=== PATIENT | female | born 1980 | race American Indian/Alaskan Native ===

== ENCOUNTER 2017-12-10 12:16 | Emergency (ER) | payer OTHER ==
[2017-12-10 12:34] VITALS: RESP 18; O2SAT 100
--- NOTE | 2017-12-10 12:58 | C.PDOC ---
History Of Present Illness 37-year-old female, PMHx includes Hypertension, presents to the emergency department with complaints of foot pain s/p mechanical fall. Patient states she was stepping off the train, and twisted her left foot/ankle. States she was able to get up, but pain continued and she almost fell again. Pain worsens with movement and weight bearing. Denies any numbness/weakness. Of note, pt has not taken her blood pressure meds this morning. Time Seen by Provider: 12/10/17 12:21 Chief Complaint (Nursing): Lower Extremity Problem/Injury History Per: Patient History/Exam Limitations: no limitations Current Symptoms Are (Timing): Still Present Severity: Moderate Past Medical History Reviewed: Historical Data, Nursing Documentation, Vital Signs Vital Signs: Last Vital Signs Temp 98.4 F 12/10/17 13:17 Pulse 82 12/10/17 13:17 Resp 18 12/10/17 13:17 BP 173/103 H 12/10/17 13:17 Pulse Ox 100 12/10/17 13:45 - Medical History PMH: HTN Family History: States: No Known Family Hx - Social History Hx Alcohol Use: Yes Hx Substance Use: No - Immunization History Hx Tetanus Toxoid Vaccination: Yes Hx Influenza Vaccination: No Hx Pneumococcal Vaccination: No Review Of Systems Except As Marked, All Systems Reviewed And Found Negative. Musculoskeletal: Positive for: Foot Pain Neurological: Negative for: Weakness, Numbness Physical Exam - Physical Exam Appears: Non-toxic, No Acute Distress Skin: Normal Color, Warm, Dry, No Rash Head: Atraumatic, Normacephalic Eye(s): bilateral: Normal Inspection Nose: Normal Oral Mucosa: Moist Lips: Normal Appearing Neck: Normal ROM Extremity: Normal ROM, No Calf Tenderness, No Deformity, Other (Swelling and tenderness to left lateral ankle. mild tenderness to left medial foot.) Neurological/Psych: Oriented x3, Normal Speech Gait: Steady ED Course And Treatment O2 Sat by Pulse Oximetry: 100 Pulse Ox Interpretation: Normal (RA) Medical Decision Making Medical Decision Making: Plan: * Tylenol * XR Ankle, Foot Xray was negative for fracture as viewed by me. Aircast splint applied by CP. Patient instructed in crutch walking. Patient discharged for outpatient f/u with PMD. Disposition Counseled Patient/Family Regarding: Studies Performed, Diagnosis, Need For Followup, Rx Given - Disposition Referrals: Vahe Dominguez MD [Staff Provider] - Disposition: HOME/ ROUTINE Disposition Time: 12:57 Condition: STABLE Additional Instructions: Your x-ray was normal, no fracture. Please apply ice to area 15 minutes three times a day. Take Motrin as needed for pain every 6 hours, with food to not upset stomach. Follow up with orthopedic if pain persists over one week. Prescriptions: Ibuprofen [Motrin] 600 mg PO Q8 #30 tab Instructions: Foot Sprain (DC) Forms: [facility]) (Lithuanian) - POA Present On Arrival: None - Clinical Impression Clinical Impression: Ankle sprain, Foot sprain - Scribe Statement The provider has reviewed the documentation as recorded by the Scribe (Jeri Agosto) All medical record entries made by the Scribe were at my direction and personally dictated by me. I have reviewed the chart and agree that the record accurately reflects my personal performance of the history, physical exam, medical decision making, and the department course for this patient. I have also personally directed, reviewed, and agree with the discharge instructions and disposition.
[2017-12-10 13:23] VITALS: BP 173/103; PULSE 82; TEMP 98.4
--- NOTE | 2017-12-10 17:21 | RAD ---
Date of service: 12/10/2017 PROCEDURE: Left Foot Radiographs. HISTORY: pain s.p fall COMPARISON: None. FINDINGS: BONES: Normal. No fracture. JOINTS: Normal. SOFT TISSUES: Normal. OTHER FINDINGS: None. IMPRESSION: No evidence of acute fracture or dislocation.
--- NOTE | 2017-12-10 17:22 | RAD ---
Date of service: 12/10/2017 PROCEDURE: Left Ankle Radiographs. HISTORY: pain COMPARISON: None FINDINGS: BONES: Normal. No fracture. There is a small calcaneal spur JOINTS: Normal. No osteoarthritis. Ankle mortise maintained. Talar dome intact SOFT TISSUES: Soft tissue swelling noted around the ankle. OTHER FINDINGS: None. IMPRESSION: No evidence of acute fracture or dislocation. Soft tissue swelling.
== END 2017-12-10 13:24 | disposition home or self-care (01) ==
LOC: C.ER 12:16
DX: S93.402A Sprain of unspecified ligament of left ankle, initial encounter (principal); S93.602A Unspecified sprain of left foot, initial encounter; W19.XXXA Unspecified fall, initial encounter; Y92.815 Train as the place of occurrence of the external cause